=== PATIENT | female | born 2000 | race Two or more races ===

== ENCOUNTER 2022-07-15 08:31 | Inpatient (IN) | payer OTHER ==
[~2022-07-15] VITALS: Ht 160 cm; Wt 3.2 kg
[2022-07-15] MEDS ORDERED: PRENATAL TABLE1 EAC1 (09:26)
[2022-07-18] MEDS ORDERED: COLACE100 MG PO (12:00)
[2022-07-18] MEDS ORDERED: IBU800 MG PO (12:00)
== END 2022-07-18 13:54 | disposition home or self-care (01) | DRG 788 ==
LOC: LDR 08:31 → O/R 13:06 → OB/GYN 14:42
PROVIDERS: ADMIT Specialist; ATTEND Specialist
PROC: 4A1HXCZ Monitoring of Products of Conception, Cardiac Rate, External Approach (ICD-10-PCS; 2022-07-15)
PROC: 10D00Z1 Extraction of Products of Conception, Low, Open Approach (ICD-10-PCS; principal; 2022-07-15 09:00)
DX: O32.1XX0 Maternal care for breech presentation, not applicable or unspecified (principal); Z3A.39 39 weeks gestation of pregnancy; Z37.0 Single live birth; Z20.822 Contact with and (suspected) exposure to COVID-19